=== PATIENT | female | born 1950 | race Two or more races ===

== ENCOUNTER 2019-08-26 22:18 | Emergency (ER) | payer SELFPAY ==
[~2019-08-26] VITALS: Ht 134.6 cm; Wt 66.0 kg
[2019-08-26 22:44] LABS: APPEARANCE,URINE CLEAR (CLEAR); BILIRUBIN,URINE NEGATIVE (NEGATIVE); GLUCOSE, URINE (UA) >=1000 mg/dL (NEGATIVE); KETONES,URINE NEGATIVE (NEGATIVE); LEUKOCYTE ESTERASE ,URINE NEGATIVE (NEGATIVE); NITRATE,URINE NEGATIVE (NEGATIVE); OCCULT BLOOD,URINE NEGATIVE (NEGATIVE); PH,URINE 5.5 (5.0-8.0); PROTEIN,URINE NEGATIVE (NEGATIVE)
[2019-08-26] MEDS: KETOROLAC TROMETHAMINE 30 MG/ML VIAL IVP ONE (22:56)
[2019-08-26 22:57] LABS: BASOPHILS % (AUTO) 0.4 % (0.0-2.0); EOSINOPHILS % (AUTO) 0.3 % (1.0-6.0); HEMATOCRIT 42.5 % (36-46); HEMOGLOBIN 14.6 g/dL (12.0-16.0); LYMPHOCYTES # (AUTO) 2.1 K/uL (1.0-4.8); LYMPHOCYTES % (AUTO) 25.5 % (22.0-44.0); MEAN CORPUSCULAR HEMOGLOBIN 31.6 pg (26.0-34.0); MEAN CORPUSCULAR HGB CONC 34.4 G/dL (31.0-37.0); MEAN CORPUSCULAR VOLUME 92 fL (80-100); MONOCYTES # (AUTO) 0.7 K/uL (0.1-1.0); MONOCYTES % (AUTO) 8.4 % (2.0-9.0); NEUTROPHILS # (AUTO) 5.3 K/uL (1.8-7.7); NEUTROPHILS % (AUTO) 65.4 % (40.0-70.0); PLATELET COUNT (AUTO) 183 K/uL (150-450); RED BLOOD CELL COUNT(AUTO) 4.62 MIL/uL (4.00-5.20); RED CELL DISTRIBUTION WIDTH 13.2 % (11.5-14.5)
[2019-08-26] MEDS: SODIUM CHLORIDE 0.9% 500 ML IV ONE (23:02)
[2019-08-26 23:06] LABS: BACTERIA,URINE None Seen /HPF (None Seen); RBC,URINE 0-2 /HPF (0-2)
[2019-08-26 23:07] LABS: SQUAMOUS EPITHELIAL CELL,UR Moderate /LPF (None Seen)
[2019-08-26 23:14] LABS: ALANINE AMINOTRANSFERASE 44 U/L (12-78); ALBUMIN 3.5 g/dL (3.4-5.0); ALKALINE PHOSPHATASE 167 U/L (46-116); ANION GAP 10 mmol/L (8-16); ASPARTATE AMINOTRANSFERASE 18 U/L (15-37); BILIRUBIN,TOTAL 0.8 mg/dL (0.1-1.0); CALCIUM, TOTAL 8.7 mg/dL (8.8-10.5); CARBON DIOXIDE 25 mmol/L (22-29); CHLORIDE 97 mmol/L (98-107); CREATININE 0.73 mg/dL (0.60-1.30); GLOMERULAR FILTR. RATE CALC > 60 mL/min (>60); LIPASE 118 U/L (73-393); POTASSIUM 3.8 mmol/L (3.5-5.1); SODIUM SERUM 132 mmol/L (136-145); TOTAL PROTEIN, SERUM 8.1 g/dL (6.4-8.2); UREA NITROGEN, BLOOD 11 mg/dL (7-18)
[2019-08-26 23:19] LABS: GLUCOSE,RANDOM 413 mg/dL (70-110)
[2019-08-26] MEDS: SODIUM CHLORIDE 0.9% 1,000 ML IV ONE (23:29)
[2019-08-26] MEDS ORDERED: IOVERSOL 350 MG/ML 100 ML VIAL ONE (23:59)
[2019-08-26] MEDS ORDERED: SODIUM CHLORIDE 0.9% 100 ML ONE (23:59)
[2019-08-27 01:02] LABS: GLUCOSE,POINT OF CARE 329 MG/DL (70-110)
[2019-08-27] MEDS: MetroNIDAZOLE 500 MG/NACL 100 ML IV ONE (01:22)
[2019-08-27] MEDS: CIPROFLOXACIN 400 MG/D5% WATER 200 ML IV ONE (02:25)
[2019-08-27 02:45] VITALS: BP 138/75
== END 2019-08-27 03:52 | disposition home or self-care (01) ==
LOC: EMS 22:22
DX: K76.89 Other specified diseases of liver (principal); Z88.0 Allergy status to penicillin
CPT/HCPCS: 36415; 74177; 76700; 80053; 81001; 82962; 83690; 85025; 96365; 96367; 96375; 99285; J0744; J1885; J3490; J7030; J7040; J7050; Q9967